=== PATIENT | female | born 2000 | race Caucasian/White ===

== ENCOUNTER 2025-01-09 15:29 | Outpatient (CLI) | payer OTHER, SELFPAY | END 2025-01-09 15:30 | disposition home or self-care (01) | PROVIDERS: Visit Provider Advanced Practice Midwife | DX: O99.713 Diseases of the skin and subcutaneous tissue complicating pregnancy, third trimester (principal); L99 Other disorders of skin and subcutaneous tissue in diseases classified elsewhere | CPT/HCPCS: 82239; 84450; 84460; 86592 ==

== ENCOUNTER 2025-01-12 11:59 | Outpatient (CLI) | payer OTHER, SELFPAY ==
--- NOTE | 2025-01-12 12:15 | CRLHL7_ITS ---
For Patients: As a result of the Century Cures Act, medical imaging exams and procedure reports are released immediately into your electronic medical record. You may view this report before your referring provider. If you have questions, please contact your health care provider. OB ULTRASOUND BIOPHYSICAL PROFILE CLINICAL HISTORY: Intrahepatic cholestasis of . TECHNIQUE: Real time resendez scale imaging of the fetus was performed. Transabdominal imaging performed. COMPARISON: Outside facility. FINDINGS: SIDDHARTHA by LMP: 02/13/2025. GA: 35 weeks 3 days. Gestation: Single. Cervix: Not visualized. Positioning: Vertex. Amniotic Fluid: 5.7 cm SDP. BIOPHYSICAL PROFILE Gross Body Movements: 2 Tone: 2 Respiratory Activity: 2 Amniotic Fluid SDP: 2 Total Score: 8 Placenta: Technique: TA. Placenta Position: Posterior. Dopplers: Heart Rate: 141 bpm. BIOMETRY BPD: 8.3 cm, 33 weeks 2 days. 6.5% HC: 30.3 cm, 33 weeks 4 days. <3% AC: 30.8 cm, 34 weeks 5 days. 38% FL: 6.2 cm, 32 weeks 2 days. <3% FL/AC: 20.19% HC/AC: 0.98. EFW: 2279 grams, 5 lb 0 oz. Age by this US: 33 weeks 3 days. SIDDHARTHA by this US: 02/27/2025. Percentile by SIDDHARTHA: 11.5% IMPRESSION: 1. Normal biophysical profile score 8/8. 2. Sonographic gestational age 33 weeks 3 days and sonographic due date 02/27/2025. Sonographic age is 2 weeks behind the clinical age. 3. Estimated weight 12th percentile. Abdominal circumference 38th percentile. 4. Head circumference and femur length both less than 3rd percentile. Donn Cervantes M.D. Diagnostic Radiologist [email or web address] Transcribed: 3:00 pm DW/Dictated by: Donn Cervantes MD @ 01/12/2025 2:43:00 PM (Electronically Signed)
== END 2025-01-12 12:00 | disposition home or self-care (01) ==
LOC: US 11:59
PROVIDERS: Visit Provider Advanced Practice Midwife
DX: O36.5930 Maternal care for other known or suspected poor fetal growth, third trimester, not applicable or unspecified (principal); Z3A.35 35 weeks gestation of pregnancy
CPT/HCPCS: 76815; 76819

== ENCOUNTER 2025-01-16 12:34 | Outpatient (CLI) | payer OTHER, SELFPAY ==
[2025-01-17 12:38] LABS: Strep B DNA Probe Negative (Negative)
[2025-01-17 13:10] LABS: Strep B Susceptibility Needed? No
== END 2025-01-16 12:35 | disposition home or self-care (01) ==
LOC: NFLDREF 12:35
PROVIDERS: Visit Provider Advanced Practice Midwife
DX: Z34.93 Encounter for supervision of normal pregnancy, unspecified, third trimester (principal); N89.8 Other specified noninflammatory disorders of vagina
CPT/HCPCS: 82239; 84450; 84460; 86787; 87081; 87653

== ENCOUNTER 2025-01-18 21:30 | Outpatient (CLI) | payer OTHER, SELFPAY ==
[2025-01-18 21:42] VITALS: BP 121/70; PULSE 117; RESP 16; TEMP 37
[2025-01-18 22:27] LABS: Appearance Urine Clear (Clear)
--- NOTE | 2025-01-18 23:24 | PC.OBNST ---
NST Note NST Note Start: 01/18/25 21:37 Freq: ONCE Status: Active Protocol: Document 01/18/25 23:00 [facility] (Rec: 01/18/25 23:24 [facility] [id number]) NST Note 2 Para (# of births) 1 EDC 02/13/25 Gestational Age In 36 Weeks & 2 Days Weeks & Days Patient Presented Contractions/cramping with Complaint(s) of Reactive Yes Appropriate for Yes Gestational Age RN Barbie RN Date 01/18/25 Reactive Yes Appropriate for Yes Gestational Age RN Rodger RN Date 01/18/25 OB NST charge Yes Complete NST Note Yes via Write Note The provider's electronic signature indicates the NST is reactive/appropriate for gestational age. *Note to provider: If an addendum is required, open the patient's chart and click on the note under the Nurse/Allied Health tab.
== END 2025-01-18 23:15 | disposition home or self-care (01) ==
LOC: OB OUT 21:32 → OB 21:32
PROVIDERS: Visit Provider Midwife
DX: O47.03 False labor before 37 completed weeks of gestation, third trimester (principal); Z3A.36 36 weeks gestation of pregnancy
CPT/HCPCS: 59025; 81001; 81003; 87086; G0463

== ENCOUNTER 2025-01-19 11:08 | Outpatient (CLI) | payer OTHER, SELFPAY ==
--- NOTE | 2025-01-19 11:15 | CRLHL7_ITS ---
For Patients: As a result of the Century Cures Act, medical imaging exams and procedure reports are released immediately into your electronic medical record. You may view this report before your referring provider. If you have questions, please contact your health care provider. INDICATION: Intrahepatic cholestasis of . COMPARISON: OB ultrasound 01/12/2025. TECHNIQUE: Ultrasound OB pelvis transabdominal. Real time grayscale imaging of the fetus was performed without non-stress testing. FINDINGS: Sonographic imaging demonstrates a single living intrauterine gestation. The fetus has a regular cardiac rate of 155 beats per minute. The fetus has a cephalic orientation. The placenta lies posteriorly. Single deepest pocket measures 5.8 cm. breathing movements: 2/2 Gross body movements: 2/2 tone: 2/2 Amniotic fluid volume: 2/2 Total: 09/29 IMPRESSION: Normal biophysical profile score 8 out of 8. Dictated by Mesha Yates MD @ 01/20/2025 3:10:51 AM (Electronically Signed)
== END 2025-01-19 11:09 | disposition home or self-care (01) ==
PROVIDERS: Visit Provider Advanced Practice Midwife
DX: O26.643 Intrahepatic cholestasis of pregnancy, third trimester (principal); Z3A.37 37 weeks gestation of pregnancy
CPT/HCPCS: 76819

== ENCOUNTER 2025-01-23 14:15 | Outpatient (CLI) | payer OTHER, SELFPAY | END 2025-01-23 14:16 | disposition home or self-care (01) | LOC: NFLDREF 01-28 04:41 | PROVIDERS: Visit Provider Advanced Practice Midwife | DX: O26.643 Intrahepatic cholestasis of pregnancy, third trimester (principal) | CPT/HCPCS: 82239; 84450; 84460 ==

== ENCOUNTER 2025-01-25 11:16 | Inpatient (IN) | payer OTHER, SELFPAY ==
[2025-01-25] VITALS (84 sets, daily range): BP systolic 93–133; BP diastolic 50–71; PULSE 65–234; RESP 16–20; TEMP 36.8–37.1; O2SAT 93–100; BMI 26.4
--- NOTE | 2025-01-25 11:56 | W.PM.LDBA ---
Subjective History of Present Illness Date Seen: 01/25/25 Narrative: Patient is being admitted to Labor and Delivery for IOL for cholestasis. She has had generalized itching. Labs are stable with last bile acids 01/16/25 of 2. Drawn again 01/23/25 and pending. Liver enzymes are normal. She is a 25 year old at 37 2/7 weeks gestation. Her full history and physical was dictated by Tate Deleon 01/19/25. Please see this for details. Reviewed prenatally with patient that bile acids of 2 are a resendez zone and risks of 37w vs 39w inductions risks for and she opted for continuing with plan for IOL. she is supported by Micah and Mickie. She is planning an epidural likely. Specific Issues/Plans Partner: Jerica??([employer]?) Tx at 35 weeks gestation from [facility] H&P completed by BUTCH Sexton on 01/19/2025 #Rh- negative blood type RhoGAM given 11/24 per records #Cholestasis, based on pruritus of hands/feet OB consult if able, did review pt case with MD's Itching of hands and feet reported at 28 weeks, no labs included in transfer records Twice weekly starting at 32 weeks- testing sheet filled out 01/12 Growth US every 4 weeks starting at time of diagnosis EFW 11.5%, HC <3% at 35.3 wks Delivery recommended ? Max bile acids <100: 36 0/7-39 6/7 weeks? Consider delivery later end of range if bile acids <40? Consider delivery at earlier end of range if bile acids >40? Max bile acids >100: 36 0/7 weeks? Max bile acids >100 and severe pruritus, history of stillbirth due to ICP, or preexisting or acute hepatic disease with worsening hepatic function: delivery recommended at 34 0/7-36 0/7 weeks.? Weekly bile acids and LFT's 01/09- AST 47, bile acid 2 01/16- AST 31, bile acid 2 Transfer Labs, (collected?07/12/24) Blood type: B- , antibody screen negative. ? Hgb: 13.9 ? Platelets: 284 ? Rubella: Immune ? Varicella: not ordered RPR: non-reactive ? HBsAg: non-reactive ? Hep C: negative HIV: negative ? UC: urogenital microbacteria GC/Chlamydia: negative/negative ? Pap (07/20/24): negative ? Genetic screening: [id number] low risk 1hr gtt (11/24/2024): 122 ? 3rd trimester hgb: 10.8 at 28 weeks ? IMAGING: ? 1st trimester: 07/11/24 single intrauterine dating consistent with LMP ? Anatomy scan: 09/26/24 EFW 62.6%. incomplete anatomy survey. Follow-up recommended Follow up FAS: 10/27/24 follow-up anatomy survey completed and no anomalies identified Growth US: 01/19/2025 IMPRESSION: 1. Normal biophysical profile score 09/29. 2. Sonographic gestational age 33 weeks 3 days and sonographic due date 02/27/2025. Sonographic age is 2 weeks behind the clinical age. 3. Estimated weight 12th percentile. Abdominal circumference 38th percentile. 4. Head circumference and femur length both less than 3rd percentile. COVID: first dose out of initial series, declined 01/09/2025 Flu: 11/24/2024 TDAP: 11/24/2024 RSV:01/09/25 OB - Problem Based A/P Additional Plan (1) Cholestasis during : Status: Acute (2) Encounter for induction of labor: Status: Acute Plan ASSESSMENT:?? 25 at 37 2/7 weeks gestation?? complicated by:?cholestasis? Labor type: induced, not yet in labor?? Category 1 FHR pattern.??? Labor complicated by: none GBS negative? PLAN:?? 1. Routine intrapartum cares as ordered. Options of pitocin and AROM reviewed with risks. Pt opting for pitocin at this time. Can consider AROM PRN. 2. Monitoring per policy, continuous?? 3. Planning likely medicated . Candidate for analgesia of choice.??? 4. Patient encouraged to reposition and ambulate to promote physiologic labor and .?? 5. Anticipate ? OB Result Labs Blood Type: B (-) negative Rubella: immune RPR/VDLR: nonreactive GBS Status: negative HBsAG: negative OB Exam Physical Exam Vital signs: Temp Pulse Resp BP Pulse Ox 98.3 F 111 H 20 122/69 97 01/25/25 11:26 01/25/25 11:26 01/25/25 11:26 01/25/25 11:26 01/25/25 11:25 Narrative: Vitals Reviewed Constitutional:? Alert and oriented x3 HEENT:? Normocephalic, atraumatic Neck:? Supple Lungs:? Clear to auscultation bilaterally Heart:? Regular rate and rhythm, no murmur, rub or gallop Abdomen:? Soft, nontender, and gravid. Vertex by Ronald's, confirmed with cervical exam. Extremities:? No edema or erythema Cervix: 3 cm/70%/-1 station/vertex with palpable sutures, small amount bloody show with membrane sweep, BBOW NST: 145 bpm/moderate variability/accelerations present/decelerations-possibly one but not repeated/contractions irregular
[2025-01-25 12:37] LABS: Hematocrit* 31.6 % (33.0-51.0); Hemoglobin* 10.0 gm/dL (12.0-16.0); Immature Granulocytes Abs Auto 0.02 K/uL (0.00-0.30); Immature Granulocytes Pct Auto 0.2 %; Mean Corpuscular HGB Conc 32 gm/dL (32-36); Mean Corpuscular Hemoglobin 27 pg (26-34); Mean Corpuscular Volume 84 fL (80-100); RDW Coefficient of Variation % 14.6 % (11.5-15.5); Red Blood Count* 3.78 m/uL (4.00-5.20); White Blood Count* 10.41 K/uL (4.50-11.00)
[2025-01-25 12:40] LABS: Lymphocytes Absolute Auto 1.20 K/uL (0.90-2.90); Slide Review Reflex No
[2025-01-25] MEDS: LACTATED RINGERS 1000 ML 1,000 ML 125 ML IV ×2 (12:50→20:30)
[2025-01-25] MEDS: OXYTOCIN 30 unit/500 ML in NS 30 UNIT/500 ML BAG IVPB (12:51)
--- NOTE | 2025-01-25 17:00 | P.OBPN_ITS ---
Subjective Date Seen: 01/25/25 Narrative: Patient was admitted to Labor and Delivery for IOL for cholestasis. Bile acids 01/23/25 are 5. Liver enzymes are normal. She is a 25 year old at 37 2/7 weeks gestation. Hgb noted at 10.0, Platelets 293. She is starting to feel contractions on pitocin titration low and in front of abdomen. She is supported in labor by Jerica and Mickie. Specific Issues/Plans Partner: Jerica??([employer]?) Tx at 35 weeks gestation from [facility] H&P completed by BUTCH Sexton on 01/19/2025 #Rh- negative blood type RhoGAM given 11/24 per records #Cholestasis, based on pruritus of hands/feet OB consult if able, did review pt case with MD's Itching of hands and feet reported at 28 weeks, no labs included in transfer records Twice weekly starting at 32 weeks- testing sheet filled out 01/12 Growth US every 4 weeks starting at time of diagnosis EFW 11.5%, HC <3% at 35.3 wks Delivery recommended ? Max bile acids <100: 36 0/7-39 6/7 weeks? Consider delivery later end of range if bile acids <40? Consider delivery at earlier end of range if bile acids >40? Max bile acids >100: 36 0/7 weeks? Max bile acids >100 and severe pruritus, history of stillbirth due to ICP, or preexisting or acute hepatic disease with worsening hepatic function: delivery recommended at 34 0/7-36 0/7 weeks.? Weekly bile acids and LFT's 01/09- AST 47, bile acid 2 01/16- AST 31, bile acid 2 Transfer Labs, (collected?07/12/24) Blood type: B- , antibody screen negative. ? Hgb: 13.9 ? Platelets: 284 ? Rubella: Immune ? Varicella: not ordered RPR: non-reactive ? HBsAg: non-reactive ? Hep C: negative HIV: negative ? UC: urogenital microbacteria GC/Chlamydia: negative/negative ? Pap (07/20/24): negative ? Genetic screening: [id number] low risk 1hr gtt (11/24/2024): 122 ? 3rd trimester hgb: 10.8 at 28 weeks ? IMAGING: ? 1st trimester: 07/11/24 single intrauterine dating consistent with LMP ? Anatomy scan: 09/26/24 EFW 62.6%. incomplete anatomy survey. Follow-up recommended Follow up FAS: 10/27/24 follow-up anatomy survey completed and no anomalies identified Growth US: 01/19/2025 IMPRESSION: 1. Normal biophysical profile score 8/8. 2. Sonographic gestational age 33 weeks 3 days and sonographic due date 02/27/2025. Sonographic age is 2 weeks behind the clinical age. 3. Estimated weight 12th percentile. Abdominal circumference 38th percentile. 4. Head circumference and femur length both less than 3rd percentile. Objective Exam: Objective: Constitutional: Alert and oriented x3, no distress, coping well Vital signs stable, see nurse documentation Abdomen: gravid, contractions palpate moderate with contractions and soft between Cervix: 4 cm/90%/0 station/vertex NST: 140 bpm/moderate variability/accelerations present/decelerations absent/contractions currently q 2 min Pitocin at 10 Vital Signs: Last Vital Signs Temp 98.8 F 01/25/25 16:58 Pulse 82 01/25/25 16:58 Resp 16 01/25/25 16:58 BP 115/61 01/25/25 16:58 Pulse Ox 97 01/25/25 16:59 Plan Plan: ASSESSMENT:?? 25 at 37 2/7 weeks gestation?? complicated by:?cholestasis? Labor type: induced, early active labor?? Category 1 FHR pattern.??? Labor complicated by: none GBS negative? PLAN:?? 1. Routine intrapartum cares as ordered. Continue pitocin induction. 2. Monitoring per policy, continuous?? 3. Planning likely medicated . Candidate for analgesia of choice.??? 4. Patient encouraged to reposition and ambulate to promote physiologic labor and .?? 5. Anticipate ?
[2025-01-25] MEDS: LIDOCAINE 2% (PF) 5 ML VIAL EPIDURAL (18:00)
[2025-01-25] MEDS: ROPIVACAINE 0.2% 100 ml 100 ML 12 MG EPIDURAL (18:00)
--- NOTE | 2025-01-25 18:17 | P.ANBPRC_ITS ---
[facility] Medical History (Updated 01/25/25 @ 12:21 by Sanjuana Mcdonald CNM) Urinary tract infection ?N39.0 - Urinary tract infection, site not specified (ICD-10) Artificial insemination ?Z31.89 - Encounter for other procreative management (ICD-10) (normal spontaneous vaginal delivery) ?O80 - Encounter for full-term uncomplicated delivery (ICD-10) Depression ?F32.A - Depression, unspecified (ICD-10) Anxiety ?F41.9 - Anxiety disorder, unspecified (ICD-10) Surgical History (Updated 01/09/25 @ 15:22 by Mitzi Crystal) History of hip surgery ?Z98.890 - Other specified postprocedural states (ICD-10) Family History (Updated 01/09/25 @ 17:12 by Mitzi Crystal) Mother Stillbirth Anxiety Thyroid disease Thyroid cancer Hyperlipidemia Migraines Obesity Father Anxiety Diabetes High blood pressure Hyperlipidemia Colon polyps Maternal Grandmother Thyroid cancer Thyroid disease Hyperlipidemia Maternal Grandfather High blood pressure Bladder cancer Paternal Grandfather High blood pressure Heart disease Alcohol dependence Stroke Aunt Thyroid disease Aunt Thyroid disease Aunt Thyroid disease Uncle Coronary artery disease Social History (Updated 01/09/25 @ 15:00 by Milagro Miller ~ DIRECTOR OF PLACEMENT, DIRECTOR OF PLACEMENT) What is your current living situation?: I presently have a place to live Problems where you live: no known problems In the past 12 months, utilities in danger of being shut off: no In past 12 months, lack of transportation kept you from medical appts, meetings, work, or getting things needed for daily living: no In the past 12 mos, have been you worried that your food would run out before y ou had money to buy more?: never true In the past 12 mos, the food you bought just didn't last and you didn't have money to buy more?: never true Smoking Status: Never smoker How often does anyone, including family, friends and others, physically hurt you : never How often does anyone, including family, friends and others, insult or talk down to you: never How often does anyone, including family, friends and others, threaten you with harm: never How often does anyone, including family, friends and others, scream or curse at you: never Meds Home Medications and Allergies Home Medications ?Medication ?Instructions ?Recorded ?Confirmed ?Type vits 168-iron 27 mg-folic 1 cap PO DAILY 12/2301/25/25 History acid 800 mcg-omega3 235 mg capsule (One-A-Day -1) ferrous sulfate 325 mg (65 mg 325 mg PO Q OTHER DAY 01/25/25 History iron) tablet Allergies Allergy/AdvReac Type Severity Reaction Status Date / Time amoxicillin (From Augmentin) Allergy hives Verified 01/25/25 11:42 clavulanic acid (From Allergy hives Verified 01/25/25 11:42 Augmentin) Penicillins Allergy Rash Verified 01/25/25 11:42 Results Labs Labs: Laboratory Results - last 24 hr 01/25/25 12: WBC 10.41 RBC 3.78 L Hgb 10.0 L Hct 31.6 L MCV 84 MCH 27 MCHC 32 RDW Coeff of Madelyn 14.6 Plt Count 293 Neut % (Auto) 77.0 H Lymph % (Auto) 11.4 L Teller % (Auto) 10.0 Eos % (Auto) 1.1 Baso % (Auto) 0.3 Neut # (Auto) 8.00 H Lymph # (Auto) 1.20 Teller # (Auto) 1.00 H Eos # (Auto) 0.11 Baso # (Auto) 0.03 Abs Immat Gran (auto) 0.02 Imm/Tot Granulo (auto) 0.2 Blood Type B Negative Antibody Screen POSITIVE Vital Signs Vital Signs: Last Vital Signs Temp 98.8 F 01/25/25 16:58 Pulse 87 01/25/25 18:16 Resp 16 01/25/25 16:58 BP 111/58 L 01/25/25 18:16 Pulse Ox 99 01/25/25 18:13 Weight: 67.54 kg Height: 160.02 cm Anesthesia Procedures Epidural Insertion Patient Location: OB Start Time: 17:30 Stop Time: 18:30 Start Date: 01/25/25 Stop Date: 01/25/25 Reason for Block: procedure for pain Patient Position: sitting Performed By: Mitzi Constantino Preanesthetic Checklist: IV checked, risks and benefits discussed, monitors and equipment checked, pre-op evaluation, timeout performed and anesthesia consent Prep: chlorhexidine gluconate Monitoring: blood pressure monitoring, continuous pulse oximetry and heart rate Approach: midline Vertebral Space: lumbar (1-5) Epidural Technique: LORA saline Needle Type: Tuohy needle Injection Technique: continuous catheter (continuous catheter) Needle gauge: 17 Needle Length (cm): 10 cm Needle Insertion Depth (cm): 6 Catheter Gauge: 19 Catheter Type: multi-orifice Catheter at skin depth (cm): 15 Test Dose Result: negative and lidocaine 1.5% with epinephrine 1 to 200,000
--- NOTE | 2025-01-25 18:37 | PM.OBPNL ---
Subjective Date Seen: 01/25/25 Narrative: Patient was admitted to Labor and Delivery for IOL for cholestasis. Santi is now comfortable with her epidural. She is requesting AROM. She is supported in labor by Jerica and Mickie. Specific Issues/Plans Partner: Jerica??([place]?) Tx at 35 weeks gestation from [facility] H&P completed by BUTCH Sexton on 01/19/2025 #Rh- negative blood type RhoGAM given 11/24 per records #Cholestasis, based on pruritus of hands/feet OB consult if able, did review pt case with MD's Itching of hands and feet reported at 28 weeks, no labs included in transfer records Twice weekly starting at 32 weeks- testing sheet filled out 01/12 Growth US every 4 weeks starting at time of diagnosis EFW 11.5%, HC <3% at 35.3 wks Delivery recommended ? Max bile acids <100: 36 0/7-39 6/7 weeks? Consider delivery later end of range if bile acids <40? Consider delivery at earlier end of range if bile acids >40? Max bile acids >100: 36 0/7 weeks? Max bile acids >100 and severe pruritus, history of stillbirth due to ICP, or preexisting or acute hepatic disease with worsening hepatic function: delivery recommended at 34 0/7-36 0/7 weeks.? Weekly bile acids and LFT's 01/09- AST 47, bile acid 2 01/16- AST 31, bile acid 2 Transfer Labs, (collected?07/12/24) Blood type: B- , antibody screen negative. ? Hgb: 13.9 ? Platelets: 284 ? Rubella: Immune ? Varicella: not ordered RPR: non-reactive ? HBsAg: non-reactive ? Hep C: negative HIV: negative ? UC: urogenital microbacteria GC/Chlamydia: negative/negative ? Pap (07/20/24): negative ? Genetic screening: [id number] low risk 1hr gtt (11/24/2024): 122 ? 3rd trimester hgb: 10.8 at 28 weeks ? IMAGING: ? 1st trimester: 07/11/24 single intrauterine dating consistent with LMP ? Anatomy scan: 09/26/24 EFW 62.6%. incomplete anatomy survey. Follow-up recommended Follow up FAS: 10/27/24 follow-up anatomy survey completed and no anomalies identified Growth US: 01/19/2025 IMPRESSION: 1. Normal biophysical profile score 8/8. 2. Sonographic gestational age 33 weeks 3 days and sonographic due date 02/27/2025. Sonographic age is 2 weeks behind the clinical age. 3. Estimated weight 12th percentile. Abdominal circumference 38th percentile. 4. Head circumference and femur length both less than 3rd percentile. Objective Exam: Objective: Constitutional: Alert and oriented x3, no distress, coping well Vital signs stable, see nurse documentation Abdomen: gravid, contractions palpate moderate with contractions and soft between Cervix: 4 cm/90%/-1 station/vertex/ AROM clear fluid NST: 140 bpm/moderate variability/accelerations present/decelerations absent/contractions q 2 min Pit at 12ml/h Vital Signs: Last Vital Signs Temp 98.8 F 01/25/25 16:58 Pulse 88 01/25/25 18:34 Resp 16 01/25/25 16:58 BP 121/56 L 01/25/25 18:34 Pulse Ox 98 01/25/25 18:33 Plan Plan: ASSESSMENT:?? 25 at 37 2/7 weeks gestation?? complicated by:?cholestasis? Labor type: induced, active labor?? Category 1 FHR pattern.??? Labor complicated by: none GBS negative? PLAN:?? 1. Routine intrapartum cares as ordered. Continue pitocin induction. ARoM'd with consent 2. Monitoring per policy, continuous?? 3. Planning likely medicated . Candidate for analgesia of choice.??? 4. Patient encouraged to reposition and ambulate to promote physiologic labor and .?? 5. Anticipate ?
[2025-01-25] MEDS: ACETAMINOPHEN 500 MG TABLET 1000 MG PO (20:00)
--- NOTE | 2025-01-25 21:08 | PM.OBPNL ---
Subjective Date Seen: 01/25/25 Narrative: Patient was admitted to Labor and Delivery for IOL for cholestasis. Santi is comfortable with her epidural still but is complining of increased pressure in her bottom. She is supported in labor by Jerica and Mickie. Santi states Jerica is not doing so well as his nerves are getting the best of him. Specific Issues/Plans Partner: Jerica??([employer]?) Tx at 35 weeks gestation from [facility] H&P completed by BUTCH Sexton on 01/19/2025 #Rh- negative blood type RhoGAM given 11/24 per records #Cholestasis, based on pruritus of hands/feet OB consult if able, did review pt case with MD's Itching of hands and feet reported at 28 weeks, no labs included in transfer records Twice weekly starting at 32 weeks- testing sheet filled out 01/12 Growth US every 4 weeks starting at time of diagnosis EFW 11.5%, HC <3% at 35.3 wks Delivery recommended ? Max bile acids <100: 36 0/7-39 6/7 weeks? Consider delivery later end of range if bile acids <40? Consider delivery at earlier end of range if bile acids >40? Max bile acids >100: 36 0/7 weeks? Max bile acids >100 and severe pruritus, history of stillbirth due to ICP, or preexisting or acute hepatic disease with worsening hepatic function: delivery recommended at 34 0/7-36 0/7 weeks.? Weekly bile acids and LFT's 01/09- AST 47, bile acid 2 01/16- AST 31, bile acid 2 Transfer Labs, (collected?07/12/24) Blood type: B- , antibody screen negative. ? Hgb: 13.9 ? Platelets: 284 ? Rubella: Immune ? Varicella: not ordered RPR: non-reactive ? HBsAg: non-reactive ? Hep C: negative HIV: negative ? UC: urogenital microbacteria GC/Chlamydia: negative/negative ? Pap (07/20/24): negative ? Genetic screening: [id number] low risk 1hr gtt (11/24/2024): 122 ? 3rd trimester hgb: 10.8 at 28 weeks ? IMAGING: ? 1st trimester: 07/11/24 single intrauterine dating consistent with LMP ? Anatomy scan: 09/26/24 EFW 62.6%. incomplete anatomy survey. Follow-up recommended Follow up FAS: 10/27/24 follow-up anatomy survey completed and no anomalies identified Growth US: 01/19/2025 IMPRESSION: 1. Normal biophysical profile score 8/8. 2. Sonographic gestational age 33 weeks 3 days and sonographic due date 02/27/2025. Sonographic age is 2 weeks behind the clinical age. 3. Estimated weight 12th percentile. Abdominal circumference 38th percentile. 4. Head circumference and femur length both less than 3rd percentile. Objective Exam: Objective: Constitutional: Alert and oriented x3, mild stress, coping well Vital signs stable, see nurse documentation Abdomen: gravid, contractions palpate moderate with contractions and soft between Cervix: 8 cm/90%/+1 station/vertex/ ROT, Cervix so stretchy a couple of pushes attempted as it felt like baby could move right pastthe cervix, however the cervix returned after 2 pushes, so will change positions and wait. NST: 140 bpm/moderate variability/present accelerations/variable decelerations/contractions q 1-2 min Vital Signs: Last Vital Signs Temp 98.2 F 01/25/25 20:51 Pulse 85 01/25/25 20:51 Resp 16 01/25/25 20:51 BP 120/68 01/25/25 20:51 Pulse Ox 100 01/25/25 21:00 Plan Plan: ASSESSMENT:?? 25 at 37 2/7 weeks gestation?? complicated by:?cholestasis? Labor type: induced, active labor?? Category 2 FHR pattern.??? Labor complicated by: none GBS negative? PLAN:?? 1. Routine intrapartum cares as ordered. Continue pitocin induction. Persistent variables periodic in timing. conservative measures, moderate variability remains. 2. Monitoring per policy, continuous?? 3. Planning likely medicated . Candidate for analgesia of choice.??? 4. Patient encouraged to reposition and ambulate to promote physiologic labor and .?? 5. Anticipate ?
[2025-01-25] MEDS: OXYTOCIN 30 unit/500 ML in NS 30 UNIT/500 ML BAG 312 UNIT IVPB (21:31)
[2025-01-25] MEDS: miSOPROStoL 800 MCG/4 TABLET PR (21:36)
[2025-01-25] MEDS: METHYLERGONOVINE MALEATE 0.2 MG/ML INJ IM (21:46)
[2025-01-25] MEDS: ONDANSETRON 2 MG/ML inj 4 MG IV (22:15)
--- NOTE | 2025-01-25 22:15 | W.PM.OBVAGDE ---
OB Procedure Vag Delivery Mother Details Mother Details: The patient is a 25 year-old, 2, Para 1, admitted on 01/25/25 at 37 2/7 wks gestation. Admission Date: 01/25/25 Additional Details Amniotic Membrane Status: AROM Amniotic Membrane Rupture Date: 01/25/25 Amniotic Membrane Rupture Time: 18:30 Amniotic Membrane Fluid Description: Clear Analgesia/Anesthesia Type: Epidural Waterbirth: No Pitcoin: Yes Intrapartal Events: None Induction Method: per pitocin protocol and AROM Labor Onset: 18:30 Complete: 21:22 Pushin:15 (spontaneous) Heart: heart tones during second stage were cat 2 with variables, moderate variability through out. Rapid progress Delivery Details Delivery Date: 01/25/25 Route of delivery: Infant Gender: Female Viability: Alive; Heart Rate Present Position at Delivery: OA Delivery Details: Patient was admitted for?IOL for cholestasis?and progressed normally. AROM noted at?1829?with clear fluid. Patient was complete at?2121?and?pushing?at?2114. of?a viable?female at?2123?in OA with left compound hand. Vertex?delivered?OA. No nuchal cord or shoulder.?Body?delivered easily and without incident.??passed to?mothers?abdomen with a vigorous cry. Cord was clamped and cut at approx 5 minutes due to signs of placental seperation. APGARS were?8?at one minute and?9?at five?minutes?respectively.?Intact placenta with a?3 vessel?cord delivered spontaneously at?2128. Fundus firm. Left periurethral laceration?identified?and and hemostatic. Not repaired. Initial QBL 250. With first nurse check, a large clot extracted. Vaginal sweep and fundal pressure applied. Additional 500cc calculated. Rectal misoprostol and methergine IM given. Uncertain if cervical laceration was present. Dr Barnett consulted to assess. Bleeding slowed while she was assessing. No cervical lac found. 1g TXA ordered. Total QBL?915?cc. Mother and baby stable; mother plans to breastfeed. weight pending.? ? 1 Minute Interval Total Score: 8 5 Minute Interval Total Score: 9 Additional Details Shoulder Dystocia: No Placenta Delivery Time: 21:29 Placental Delivery Description: Spontaneous Procedure Done: Global Blood Loss: 915 Laceration: Periurethral - 1st Degree (hemostatic, not repaired) Blood Loss Measurement Type: QBL Bakri Used: No Sponge/Need Count Correct: Yes Cord Vessel Description: 3 Vessels Event Summary Status: Mother and were stable after delivery. Disposition: floor
[2025-01-25] MEDS: TRANEXAMIC ACID 100 MG/ML INJ 1000 MG IV (22:20)
[2025-01-25] MEDS: IBUPROFEN 600 MG TABLET PO (22:40)
[2025-01-26] VITALS (10 sets, daily range): BP systolic 95–107; BP diastolic 58–70; PULSE 52–96; RESP 16; TEMP 36.6–36.7; O2SAT 95–97
[2025-01-26] MEDS: ACETAMINOPHEN 500 MG TABLET 1000 MG PO ×2 (01:58→14:54)
[2025-01-26] MEDS: IBUPROFEN 600 MG TABLET PO (04:38)
[2025-01-26 07:52] LABS: Hemoglobin* 9.0 gm/dL (12.0-16.0)
[2025-01-26] MEDS: DOCUSATE SODIUM 100 MG CAPSULE PO (08:03)
--- NOTE | 2025-01-26 10:02 | P.DS_ITS ---
DS: Providers Provider Date Seen: 01/26/25 Date of admission: 01/25/25 11:16 Primary care physician: Not a Local Provider Admitting Clinician: Sanjuana Mcdonald CNM Attending Physician on discharge: Jonathan Lambert CNM Date of Discharge: 01/26/25 DS: Diagnosis Discharge Diagnosis (1) care and examination of lactating mother: Status: Acute Exam Narrative: Exam Narrative: VSS, afebrile GENERAL APPEARANCE: ?normal affect, alert, no distress MOOD: ?appropriate HEENT: normocephalic, neck supple, full ROM CHEST: ?Symmetrical chest wall movement. ?Normal respiratory effort. ?Clear to auscultation HEART: ?regular rate and rhythm ABDOMEN: ?soft, non-tender. Uterine fundus is firm, at Umbilicus, Midline and is appropriate for the stage of recovery. ?Bowel sounds present. PERINEUM: ?mild edema of the perineum, there is a periurethral laceration that is healing well. EXTREMITIES: ?normal and no edema Const: Vital Signs, click to edit/add: Vital Signs - 24 hr 01/25/25 11:25 01/25/25 11:26 01/25/25 11:26 Temperature 98.3 F Pulse Rate 111 H Pulse Rate [Pulse Oximeter] Respiratory Rate 20 Blood Pressure 122/69 Blood Pressure [Ri ght Arm] Pulse Oximetry 97 Oxygen Delivery Me thod 01/25/25 13:45 01/25/25 13:45 01/25/25 14:59 Temperature 98.2 F Pulse Rate 82 87 Pulse Rate [Pulse Oximeter] Respiratory Rate 16 Blood Pressure 115/57 L 117/63 Blood Pressure [Ri ght Arm] Pulse Oximetry 96 Oxygen Delivery Me thod 01/25/25 14:59 01/25/25 16:17 01/25/25 16:58 Temperature 98.7 F Pulse Rate 93 82 Pulse Rate [Pulse Oximeter] Respiratory Rate 16 Blood Pressure 125/62 115/61 Blood Pressure [Ri ght Arm] Pulse Oximetry 97 Oxygen Delivery Me thod 01/25/25 16:58 01/25/25 16:59 01/25/25 17:58 Temperature 98.8 F Pulse Rate 98 Pulse Rate [Pulse Oximeter] Respiratory Rate 16 Blood Pressure 133/64 Blood Pressure [Ri ght Arm] Pulse Oximetry 97 97 100 Oxygen Delivery Me thod 01/25/25 18:03 01/25/25 18:04 01/25/25 18:06 Temperature Pulse Rate 80 78 85 Pulse Rate [Pulse Oximeter] Respiratory Rate Blood Pressure 126/63 122/62 121/61 Blood Pressure [Ri ght Arm] Pulse Oximetry 98 Oxygen Delivery Me thod 01/25/25 18:08 01/25/25 18:10 01/25/25 18:12 Temperature Pulse Rate 81 87 84 Pulse Rate [Pulse Oximeter] Respiratory Rate Blood Pressure 114/60 110/60 113/61 Blood Pressure [Ri ght Arm] Pulse Oximetry 100 Oxygen Delivery Me thod 01/25/25 18:13 01/25/25 18:14 01/25/25 18:16 Temperature Pulse Rate 93 87 Pulse Rate [Pulse Oximeter] Respiratory Rate Blood Pressure 114/61 111/58 L Blood Pressure [Ri ght Arm] Pulse Oximetry 99 Oxygen Delivery Me thod 01/25/25 18:18 01/25/25 18:20 01/25/25 18:22 Temperature Pulse Rate 95 96 85 Pulse Rate [Pulse Oximeter] Respiratory Rate Blood Pressure 113/58 L 110/59 L 111/58 L Blood Pressure [Ri ght Arm] Pulse Oximetry 98 Oxygen Delivery Me thod 01/25/25 18:23 01/25/25 18:24 01/25/25 18:26 Temperature Pulse Rate 87 85 Pulse Rate [Pulse Oximeter] Respiratory Rate Blood Pressure 115/57 L 116/57 L Blood Pressure [Ri ght Arm] Pulse Oximetry 97 Oxygen Delivery Me thod 01/25/25 18:28 01/25/25 18:28 01/25/25 18:33 Temperature 98.4 F Pulse Rate 93 Pulse Rate [Pulse Oximeter] Respiratory Rate 16 Blood Pressure 113/56 L Blood Pressure [Ri ght Arm] Pulse Oximetry 98 98 Oxygen Delivery Me thod 01/25/25 18:34 01/25/25 18:44 01/25/25 18:49 Temperature Pulse Rate 88 Pulse Rate [Pulse Oximeter] Respiratory Rate Blood Pressure 121/56 L Blood Pressure [Ri ght Arm] Pulse Oximetry 97 96 Oxygen Delivery Me thod 01/25/25 18:54 01/25/25 18:59 01/25/25 19:04 Temperature Pulse Rate Pulse Rate [Pulse Oximeter] Respiratory Rate Blood Pressure Blood Pressure [Ri ght Arm] Pulse Oximetry 97 98 99 Oxygen Delivery Me thod 01/25/25 19:09 01/25/25 19:14 01/25/25 19:19 Temperature Pulse Rate 81 Pulse Rate [Pulse Oximeter] Respiratory Rate Blood Pressure 99/54 L Blood Pressure [Ri ght Arm] Pulse Oximetry 99 99 100 Oxygen Delivery Me thod 01/25/25 19:24 01/25/25 19:30 01/25/25 19:35 Temperature Pulse Rate Pulse Rate [Pulse Oximeter] Respiratory Rate Blood Pressure Blood Pressure [Ri ght Arm] Pulse Oximetry 100 100 100 Oxygen Delivery Me thod 01/25/25 19:39 01/25/25 19:40 01/25/25 19:45 Temperature Pulse Rate 83 Pulse Rate [Pulse Oximeter] Respiratory Rate Blood Pressure 108/67 Blood Pressure [Ri ght Arm] Pulse Oximetry 99 98 Oxygen Delivery Me thod 01/25/25 19:50 01/25/25 19:55 01/25/25 19:58 Temperature Pulse Rate 91 Pulse Rate [Pulse Oximeter] Respiratory Rate Blood Pressure 115/70 Blood Pressure [Ri ght Arm] Pulse Oximetry 98 97 Oxygen Delivery Me thod 01/25/25 20:00 01/25/25 20:05 01/25/25 20:09 Temperature Pulse Rate Pulse Rate [Pulse Oximeter] Respiratory Rate Blood Pressure Blood Pressure [Ri ght Arm] Pulse Oximetry 97 98 93 Oxygen Delivery Me thod 01/25/25 20:10 01/25/25 20:11 01/25/25 20:15 Temperature Pulse Rate 74 Pulse Rate [Pulse Oximeter] Respiratory Rate Blood Pressure 105/61 Blood Pressure [Ri ght Arm] Pulse Oximetry 94 100 Oxygen Delivery Me thod 01/25/25 20:20 01/25/25 20:25 01/25/25 20:30 Temperature Pulse Rate Pulse Rate [Pulse Oximeter] Respiratory Rate Blood Pressure Blood Pressure [Ri ght Arm] Pulse Oximetry 100 100 99 Oxygen Delivery Me thod 01/25/25 20:35 01/25/25 20:39 01/25/25 20:40 Temperature Pulse Rate 72 Pulse Rate [Pulse Oximeter] Respiratory Rate Blood Pressure 98/50 L Blood Pressure [Ri ght Arm] Pulse Oximetry 99 99 Oxygen Delivery Me thod 01/25/25 20:45 01/25/25 20:50 01/25/25 20:51 Temperature Pulse Rate 85 Pulse Rate [Pulse Oximeter] Respiratory Rate Blood Pressure 120/68 Blood Pressure [Ri ght Arm] Pulse Oximetry 100 100 Oxygen Delivery Me thod 01/25/25 20:51 01/25/25 20:55 01/25/25 21:00 Temperature 98.2 F Pulse Rate Pulse Rate [Pulse Oximeter] Respiratory Rate 16 Blood Pressure Blood Pressure [Ri ght Arm] Pulse Oximetry 100 100 Oxygen Delivery Me thod 01/25/25 21:09 01/25/25 21:30 01/25/25 21:45 Temperature Pulse Rate 85 92 Pulse Rate [Pulse Oximeter] Respiratory Rate Blood Pressure 100/57 L 94/53 L Blood Pressure [Ri ght Arm] Pulse Oximetry 99 Oxygen Delivery Me thod 01/25/25 21:48 01/25/25 21:50 01/25/25 21:55 Temperature Pulse Rate 74 Pulse Rate [Pulse Oximeter] Respiratory Rate Blood Pressure 114/69 Blood Pressure [Ri ght Arm] Pulse Oximetry 98 99 Oxygen Delivery Me thod 01/25/25 21:58 01/25/25 21:59 01/25/25 22:00 Temperature Pulse Rate 87 82 Pulse Rate [Pulse Oximeter] Respiratory Rate Blood Pressure 112/61 102/58 L Blood Pressure [Ri ght Arm] Pulse Oximetry 100 Oxygen Delivery Mt thod 01/25/25 22:05 01/25/25 22:10 01/25/25 22:14 Temperature Pulse Rate 71 Pulse Rate [Pulse Oximeter] Respiratory Rate Blood Pressure 104/58 L Blood Pressure [Ri ght Arm] Pulse Oximetry 99 99 Oxygen Delivery Me thod 01/25/25 22:15 01/25/25 22:20 01/25/25 22:25 Temperature Pulse Rate Pulse Rate [Pulse Oximeter] Respiratory Rate Blood Pressure Blood Pressure [Ri ght Arm] Pulse Oximetry 99 99 99 Oxygen Delivery Me thod 01/25/25 22:29 01/25/25 22:30 01/25/25 22:44 Temperature Pulse Rate 87 81 Pulse Rate [Pulse Oximeter] Respiratory Rate Blood Pressure 108/62 109/64 Blood Pressure [Ri ght Arm] Pulse Oximetry 99 Oxygen Delivery Me thod 01/25/25 23:00 01/25/25 23:14 01/25/25 23:14 Temperature Pulse Rate 73 75 Pulse Rate [Pulse Oximeter] Respiratory Rate 18 Blood Pressure 111/55 L 93/61 Blood Pressure [Ri ght Arm] Pulse Oximetry Oxygen Delivery Me thod Room Air 01/25/25 23:29 01/25/25 23:44 01/25/25 23:47 Temperature Pulse Rate 76 81 Pulse Rate [Pulse Oximeter] Respiratory Rate Blood Pressure 98/69 103/69 Blood Pressure [Ri ght Arm] Pulse Oximetry 96 Oxygen Delivery Me thod 01/25/25 23:59 01/26/25 00:14 01/26/25 00:29 Temperature Pulse Rate 71 70 52 L Pulse Rate [Pulse Oximeter] Respiratory Rate Blood Pressure 108/71 106/70 100/67 Blood Pressure [Ri ght Arm] Pulse Oximetry Oxygen Delivery Me thod 01/26/25 00:44 01/26/25 00:59 01/26/25 03:23 Temperature 97.9 F Pulse Rate 65 81 Pulse Rate [Pulse Oximeter] 96 Respiratory Rate 16 Blood Pressure 98/62 99/64 Blood Pressure [Ri ght Arm] 95/58 L Pulse Oximetry 96 Oxygen Delivery Me thod Room Air 01/26/25 04:30 01/26/25 07:55 Temperature 97.8 F Pulse Rate Pulse Rate [Pulse Oximeter] 73 72 Respiratory Rate 16 16 Blood Pressure Blood Pressure [Ri ght Arm] 105/67 97/65 Pulse Oximetry 96 97 Oxygen Delivery Me thod Room Air Room Air Documenting provider has reviewed patient's vital signs: yes OB - DS: Summary Hospital Course Hospital Course: Santi is a 25 y.o. who was admitted to [facility] for induction of labor for cholestasis of . ?She had an uncomplicated NVD.?The patient feels well. ?The pain is well controlled with current medications. ?She has no new complaints. ?She is breast feeding and reports things are going well.? the patient has done well.? Vitals have been stable.? She has remained afebrile.? Has a good appetite, is tolerating a general diet. ?She is voiding without difficulty.? She is passing gas and has not yet had a bowel movement.? She is ambulating and denies any dizziness.? Has Small amount of rubra lochia. ?She is undecided on her plan for prevention. She desires a 24 hour discharge this evening. Peripartum Data Infant delivery method: Vaginal Laceration description: Periurethral - 1st Degree complications: none Gender: Female Infant Discharge Plan: Home Status at Discharge Functional status at discharge: independent ambulation Overall status at discharge: patient is progressing back to baseline Time Spent with Patient Time attestation: Total time spent providing and/or coordinating discharge services: Time spent: Less than 30 minutes Discharge Plan Discharge Disposition: Home, Self-Care Date of Admission: 01/25/25 11:16 Attending Provider on Discharge: Jonathan Lambert Primary Care Provider: Provider,Not a Local Condition: Stable Anticipated Discharge Date/Time: 01/26/25 22:30 Discharge Medications: New acetaminophen 500 mg Tablet 1,000 mg PO Q6H PRN (Reason: pain/fever) Qty: 0 0RF ferrous sulfate 325 mg (65 mg iron) Tablet 325 mg PO Q48H Qty: 30 0RF docusate sodium 100 mg Capsule 100 mg PO DAILY Qty: 90 0RF ibuprofen 600 mg Tablet 600 mg PO Q6H PRNQty: 60 0RF Continued ferrous sulfate 325 mg (65 mg iron) tablet 325 mg PO Q OTHER DAY One-A-Day -1 27 mg iron- 800 mcg-235 mg capsule 1 cap PO DAILY Discharge Orders: Discharge Order (Routine); Ordered 01/26/25 Ordered By: Jonathan Lambert Patient Education: OB Over the Counter Medication Information, OB Vaginal/Breast Feeding Additional Instructions: Discharge instructions were reviewed with the patient including signs and symptoms of infection and home going medications Nothing vaginally for 6 weeks: no tampons or intercourse Off Work or School for 8 weeks 2-week visit: discuss feeding concerns, review control options and screen for anxiety/depression. 6-week visit for an annual exam. consultation services are available to all mothers and babies for the first year after delivery.? To make an appointment, please call [phone]. Activity Level: Activity as Tolerated Discharge Diet: Regular Follow Up Appointments: [facility] [Provider Group] Forms: [id number] Info Instructions
[2025-01-26] MEDS: FERROUS SULFATE 325 MG TABLET PO (10:19)
== END 2025-01-26 22:15 | disposition home or self-care (01) | DRG 806 ==
PROVIDERS: Admitting Provider Midwife; Visit Provider Midwife
DX: O70.0 First degree perineal laceration during delivery (principal); O26.643 Intrahepatic cholestasis of pregnancy, third trimester; L29.81 Cholestatic pruritus; Z37.0 Single live birth; O26.893 Other specified pregnancy related conditions, third trimester; Z67.21 Type B blood, Rh negative; Z3A.37 37 weeks gestation of pregnancy
CPT/HCPCS: 01967; 36415; 85018; 85025; 85461; 86780; 86850; 86870; 86900; 86901; A9270; J2210; J2405; J2791; J2795; J7120